=== PATIENT | female | born 1990 | race Caucasian/White ===

== ENCOUNTER 2016-11-21 18:15 | Emergency (ER) | payer MEDICAID ==
--- NOTE | 2016-11-21 18:44 | Emergency Department Record ---
History of Present Illness - General Chief Complaint: Neck Injury/Pain Stated Complaint: LT SIDE NECK PAIN Time Seen by Provider: 11/21/16 18:41 Source: Patient Mode of Arrival: Ambulatory Limitations: No limitations - History of Present Illness Initial Comments: 25 yo female presents to ED with a CC of left sided neck pain for the past several days. Patient reports falling asleep on a large couch cushion before waking up with her symptoms, denies trauma or injury, denies numbness, tingling , or weakness to the left upper extremity. Patient denies health problems at her baseline. MD Complaint: Neck pain Onset/Timin -: Days(s) Place: Home Severity: Mild Severity scale (1-10): 3 Consistency: Constant Improves With: Remaining still Worsens With: Movement of neck Context: Unknown Associated Symptoms: None Treatments Prior to Arrival: Ibuprofen - Related Data Previous Rx's Medication Instructions Recorded Diazepam [Valium] 5 mg PO Q8H PRN #10 tab 11/21/16 Naproxen [Naprosyn] 500 mg PO Q12H #30 tab 11/21/16 Allergies Allergy/AdvReac Type Severity Reaction Status Date / Time propranolol AdvReac Intermediate nausea Unverified 07/24/16 13:03 acetaminophen [From Vicodin] AdvReac NAUSEA Unverified 07/24/16 13:03 hydrocodone bitartrate AdvReac NAUSEA Unverified 07/24/16 13:03 [From Vicodin] Travel Screening - Travel/Exposure Within Last 30 Days Have you traveled within the last 30 days?: No Review of Systems Constitutional: Denies: Chills, Fever, Malaise, Night sweats Eyes: Denies: Eye discharge, Eye pain ENT: Denies: Congestion, Ear pain, Epistaxis Respiratory: Denies: Cough, Dyspnea Cardiovascular: Denies: Chest pain, Dyspnea on exertion Endocrine: Denies: Fatigue, Heat or cold intolerance Gastrointestinal: Denies: Abdominal pain, Nausea, Vomiting Genitourinary: Denies: Frequency, Hematuria, Incontinence, Retention Musculoskeletal: Reports: Myalgia, Neck pain. Denies: Arthralgia, Back pain, Gout, Joint swelling Skin: Denies: Bruising, Change in color Neurological: Denies: Abnormal gait, Confusion, Headache, Tingling Psychiatric: Denies: Anxiety Hematological/Lymphatic: Denies: Anemia, Blood Clots Past Medical History - SOCIAL HISTORY Smoking Status: Current every day smoker - RESPIRATORY Hx Respiratory Disorders: No - CARDIOVASCULAR Hx Cardio Disorders: No - NEURO Hx Neuro Disorders: No - GI Hx GI Disorders: Yes Comment:: gastritis currently - Hx Genitourinary Disorders: No - ENDOCRINE Hx Endocrine Disorders: No - MUSCULOSKELETAL Hx Musculoskeletal Disorders: No - PSYCH Hx Psych Problems: Yes Hx Anxiety: Yes Hx Depression: Yes - HEMATOLOGY/ONCOLOGY Hx Hematology/Oncology Disorders: No Family Medical History Any Significant Family History?: Yes Hx Dementia: Grandparents Hx Heart Disease: Grandparents Physical Exam - General General Appearance: Alert, Oriented x3, Cooperative, Mild distress Limitations: No limitations - Head Head exam: Atraumatic, Normocephalic, Normal inspection Head exam detail: negative: Abrasion, Contusion, Resendiz's sign, General tenderness, Hematoma, Laceration - Eye Eye exam: Normal appearance. negative: Conjunctival injection, Periorbital swelling, Periorbital tenderness, Scleral icterus - ENT Ear exam: negative: Auricular hematoma, Auricular trauma Nasal Exam: negative: Active bleeding, Discharge, Dried blood, Foreign body Mouth exam: negative: Drooling, Laceration, Muffled voice, Tongue elevation - Neck Neck exam: Tenderness, Other (TTP along the paravertebral muscles of the left cervical region, limited ROM to the left as well c/w spasm/strain). negative: Meningismus, Thyromegaly - Respiratory Respiratory exam: Normal lung sounds bilaterally. negative: Respiratory distress, Rhonchi, Stridor, Wheezes - Cardiovascular Cardiovascular Exam: Regular rate, Normal rhythm, Normal heart sounds - GI/Abdominal GI/Abdominal exam: Soft. negative: Rebound, Rigid, Tenderness - Rectal Rectal exam: Deferred - exam: Deferred - Extremities Extremities exam: Normal inspection. negative: Pedal edema, Tenderness - Back Back exam: Denies: CVA tenderness (R), CVA tenderness (L) - Neurological Neurological exam: Alert, Normal gait, Oriented X3 - Psychiatric Psychiatric exam: Normal affect, Normal mood - Skin Skin exam: Normal color. negative: Abrasion Type of lesion: negative: abrasion Course Vital Signs 11/21/16 18:23 Temperature 98.0 F Pulse Rate 97 H Respiratory 20 Rate Blood Pressure 144/80 Pulse Ox 98 - Reevaluation(s) Reevaluation #1: 11/21/16 18:48 Patient seen and examined, denies trauma or injury, radiographs are not felt to be of benefit. Patient denies any symptoms of numbness, tingling, or weakness to the upper extremity (no clinical signs for spinal compression syndrome). Patient appears stable for discharge at this time. Disposition Disposition: Discharge Clinical Impression: Cervical paraspinal muscle spasm Disposition: Home, Self-Care Condition: (2) Stable Instructions: Muscle Spasm (ED) Additional Instructions: Return to ED if your symptoms worsen or if you have any concerns. naprosyn and valium as directed. Follow-up with your family doctor in 3-5 days as directed. Prescriptions: Naproxen [Naprosyn] 500 mg PO Q12H #30 tab. Diazepam [Valium] 5 mg PO Q8H PRN #10 tab PRN Reason: Spasms Forms: Patient Portal Access Time of Disposition: 18:44
== END 2016-11-21 18:58 | disposition home or self-care (01) ==
LOC: ER 18:15
DX: M62.830 Muscle spasm of back (principal)
CPT/HCPCS: 99282

== ENCOUNTER 2017-06-13 06:02 | Emergency (ER) | payer MEDICAID ==
--- NOTE | 2017-06-13 06:29 | Emergency Department Record ---
History of Present Illness - General Chief complaint: Pain Stated complaint: CRAMPING Time Seen by Provider: 06/13/17 06:17 Source: Patient Mode of Arrival: Ambulatory Limitations: No limitations - History of Present Illness Initial comments: 26 yo female presents to ED for evaluation of increasing painful periods that began 3 months ago, reports that her symptoms have been irregular and worsened 5 days ago. Patient denies health problems at her baseline, reports that she has not been sexually active since December of this year. Patient denies nausea, vomiting, change in stools, urinary symptoms, or vaginal discharge. Patient previous abdominal surgery. MD Complaint: Abdominal Pain Onset/Timin -: Days(s) History of Same: Yes Severity scale (1-10): 8 Consistency: Constant, Getting worse Improves with: Nothing Worsens with: Nothing Associated Symptoms: Denies other symptoms - Related Data Allergies Allergy/AdvReac Type Severity Reaction Status Date / Time sulfamethoxazole Allergy Intermediate red itchy Unverified 06/12/17 07:49 [From Bactrim] rash trimethoprim [From Bactrim] Allergy Intermediate red itchy Unverified 06/12/17 07:49 rash propranolol AdvReac Intermediate nausea Unverified 06/12/17 07:49 hydrocodone bitartrate AdvReac NAUSEA Unverified 06/12/17 07:49 [From Vicodin] Travel Screening - Travel/Exposure Within Last 30 Days Have you traveled within the last 30 days?: No Review of Systems Constitutional: Denies: Chills, Fever, Malaise, Night sweats Eyes: Denies: Eye discharge, Eye pain ENT: Denies: Congestion, Ear pain, Epistaxis Respiratory: Denies: Cough, Dyspnea Cardiovascular: Denies: Chest pain, Dyspnea on exertion Endocrine: Denies: Fatigue, Heat or cold intolerance Gastrointestinal: Denies: Abdominal pain, Nausea, Vomiting Genitourinary: Denies: Incontinence, Retention Musculoskeletal: Denies: Arthralgia, Back pain, Gout, Joint swelling Skin: Denies: Bruising, Change in color Neurological: Denies: Abnormal gait, Confusion, Headache, Seizure Psychiatric: Denies: Anxiety Hematological/Lymphatic: Denies: Anemia, Blood Clots Past Medical History - SOCIAL HISTORY Smoking Status: Former smoker Alcohol Use: Rare Drug Use: Occasional Drug Use Detail:: Marijuana - RESPIRATORY Hx Respiratory Disorders: No - CARDIOVASCULAR Hx Cardio Disorders: No - NEURO Hx Neuro Disorders: No - GI Hx GI Disorders: Yes Comment:: gastritis currently - Hx Genitourinary Disorders: No - ENDOCRINE Hx Endocrine Disorders: No - MUSCULOSKELETAL Hx Musculoskeletal Disorders: No - PSYCH Hx Psych Problems: Yes Hx Anxiety: Yes Hx Depression: Yes - HEMATOLOGY/ONCOLOGY Hx Hematology/Oncology Disorders: No Family Medical History Any Significant Family History?: Yes Hx Dementia: Grandparents Hx Heart Disease: Grandparents Physical Exam - General General Appearance: Alert, Oriented x3, Cooperative, Mild distress Limitations: No limitations - Head Head exam: Atraumatic, Normocephalic, Normal inspection Head exam detail: negative: Abrasion, Contusion, Resendiz's sign, General tenderness, Hematoma, Laceration - Eye Eye exam: Normal appearance. negative: Conjunctival injection, Periorbital swelling, Periorbital tenderness, Scleral icterus - ENT Ear exam: negative: Auricular hematoma, Auricular trauma Nasal Exam: negative: Active bleeding, Discharge, Dried blood, Foreign body Mouth exam: negative: Drooling, Laceration, Muffled voice, Tongue elevation - Neck Neck exam: Normal inspection. negative: Meningismus - Respiratory Respiratory exam: Normal lung sounds bilaterally. negative: Rales, Respiratory distress, Rhonchi, Stridor - Cardiovascular Cardiovascular Exam: Regular rate, Normal rhythm, Normal heart sounds - GI/Abdominal GI/Abdominal exam: Soft, Tenderness (TTP to the suprapubic, LLQ, RLQ on examination (moderate), no rebound or peritoenal signs on examination.). negative: Rebound, Rigid - Rectal Rectal exam: Deferred - exam: Deferred - Extremities Extremities exam: Normal inspection. negative: Calf tenderness, Pedal edema, Tenderness - Back Back exam: Denies: CVA tenderness (R), CVA tenderness (L) - Neurological Neurological exam: Alert, Normal gait, Oriented X3 - Psychiatric Psychiatric exam: Normal affect, Normal mood - Skin Skin exam: Normal color. negative: Abrasion Type of lesion: negative: abrasion Course Vital Signs 06/13/17 06:08 Temperature 98.1 F Pulse Rate [ 117 H Pulse Ox Probe] Respiratory 16 Rate Blood Pressure 154/95 [Left Arm] Pulse Ox 96 - Reevaluation(s) Reevaluation #1: 06/13/17 06:28 Patient seen and examined, analgesia, laboratory studies, and US pelvis ordered for further evaluation. Reevaluation #2: 06/13/17 06:46 Case was discussed with oncoming provider, will assume care and disposition pending US results. Medical Decision Making - Lab Data Result diagrams: 06/13/17 06:37 06/13/17 06:30 Disposition Clinical Impression: Pelvic pain, DUB (dysfunctional uterine bleeding) Disposition: Home, Self-Care Instructions: Dysfunctional Uterine Bleeding (ED) Additional Instructions: Return to ED if your symptoms worsen or if you have any concerns. Follow-up with your family doctor in 3-5 days as directed. Forms: Patient Portal Access Time of Disposition: 06:30 Quality - Quality Measures Quality Measures: N/A - Blood Pressure Screening Does Patient Have Any of the Following: No Blood Pressure Classification: Hypertensive Reading Systolic Measurement: 154 Diastolic Measurement: 95 Screening for High Blood Pressure: < First Hypertensive BP, F/U Documented > [ G8950] First Hypertensive Follow-up Interventions: Referral to alternative/primary care provider.
[2017-06-13 06:36] LABS: URINE APPEARANCE CLEAR; URINE BILIRUBIN NEGATIVE (NEGATIVE); URINE BLOOD MODERATE (NEGATIVE); URINE COLOR YELLOW; URINE GLUCOSE (UA) NEGATIVE (NEGATIVE); URINE KETONE NEGATIVE (NEGATIVE); URINE LEUKOCYTE ESTERASE NEGATIVE (NEGATIVE); URINE NITRITE NEGATIVE (NEGATIVE); URINE PROTEIN NEGATIVE (NEGATIVE); URINE UROBILINOGEN 0.2 E.U./dL (0.20 - 1.00)
[2017-06-13 06:38] LABS: HCG,QUALITATIVE URINE NEGATIVE (NEGATIVE); URINE BACTERIA NONE SEEN; URINE EPITHELIAL CELLS 0 - 2 (FEW); URINE WBC 0 - 2 (0-2/hpf)
[2017-06-13 06:41] LABS: BASO % 0.5 % (0-6); EOS % 1.6 % (0-6); GRAN % 58.5 % (47-80); HEMATOCRIT 41.4 % (35.0-47.0); HEMOGLOBIN 14.1 gm/dl (11.6-16.0); LYMPH % 30.7 % (16-45); MEAN CORPUSCULAR HEMOGLOBIN 28.6 pg (27-33); MEAN CORPUSCULAR HGB CONC 34.1 g/dl (32-36); MEAN PLATELET VOLUME 11.7 fl (7.4-10.4); MONO % 8.7 % (0-9); PLATELET COUNT 273 K/uL (130-400); RED BLOOD COUNT 4.93 M/uL (3.80-5.40); RED CELL DISTRIBUTION WIDTH 12.9 % (11.5-14.5); WHITE BLOOD COUNT W/O DIFF 5.8 K/uL (4.2-12.2)
[2017-06-13] MEDS: 0.9 % SODIUM CHLORIDE 1000ML 1,000 ML IV SCH (06:42)
[2017-06-13] MEDS: KETOROLAC 30 MG/ML VIAL IVP ONE (06:42)
[2017-06-13 06:58] LABS: BLOOD UREA NITROGEN 5 mg/dL (6-20); CREATININE 0.8 mg/dL (0.5-0.9); EST GLOMERULAR FILTRATION RATE > 60 mL/min; GLUCOSE,RANDOM 89 mg/dL (74-109); TOTAL PROTEIN 7.6 g/dL (6.6-8.7)
[2017-06-13 07:00] LABS: ALB/GLOB RATIO 1.4 (1.1-1.8); ALBUMIN 4.4 g/dL (4.0-5.0); ALKALINE PHOSPHATASE 43 U/L (35-104); ALT/SGPT 35 U/L (<33); AST/SGOT 25 U/L (10.0-35.0); LIPASE 16 U/L (13-60)
--- NOTE | 2017-06-13 08:23 | Emergency Department Record ---
History of Present Illness - General Chief complaint: Pain Stated complaint: CRAMPING Time Seen by Provider: 06/13/17 06:17 Source: Patient Mode of Arrival: Ambulatory Limitations: No limitations - History of Present Illness Onset/Timin -: Days(s) History of Same: Yes Severity scale (1-10): 8 Consistency: Constant, Getting worse Improves with: Nothing Worsens with: Nothing Associated Symptoms: Denies other symptoms - Related Data Previous Rx's Medication Instructions Recorded Naproxen [Naprosyn] 250 mg PO BID #14 tablet 06/13/17 Allergies Allergy/AdvReac Type Severity Reaction Status Date / Time sulfamethoxazole Allergy Intermediate red itchy Unverified 06/12/17 07:49 [From Bactrim] rash trimethoprim [From Bactrim] Allergy Intermediate red itchy Unverified 06/12/17 07:49 rash propranolol AdvReac Intermediate nausea Unverified 06/12/17 07:49 hydrocodone bitartrate AdvReac NAUSEA Unverified 06/12/17 07:49 [From Vicodin] Travel Screening - Travel/Exposure Within Last 30 Days Have you traveled within the last 30 days?: No Review of Systems Constitutional: Denies: Chills, Fever, Malaise, Night sweats Eyes: Denies: Eye discharge, Eye pain ENT: Denies: Congestion, Ear pain, Epistaxis Respiratory: Denies: Cough, Dyspnea Cardiovascular: Denies: Chest pain, Dyspnea on exertion Endocrine: Denies: Fatigue, Heat or cold intolerance Gastrointestinal: Denies: Abdominal pain, Nausea, Vomiting Genitourinary: Denies: Incontinence, Retention Musculoskeletal: Denies: Arthralgia, Back pain, Gout, Joint swelling Skin: Denies: Bruising, Change in color Neurological: Denies: Abnormal gait, Confusion, Headache, Seizure Psychiatric: Denies: Anxiety Hematological/Lymphatic: Denies: Anemia, Blood Clots Past Medical History - SOCIAL HISTORY Smoking Status: Former smoker Alcohol Use: Rare Drug Use: Occasional Drug Use Detail:: Marijuana - RESPIRATORY Hx Respiratory Disorders: No - CARDIOVASCULAR Hx Cardio Disorders: No - NEURO Hx Neuro Disorders: No - GI Hx GI Disorders: Yes Comment:: gastritis currently - Hx Genitourinary Disorders: No - ENDOCRINE Hx Endocrine Disorders: No - MUSCULOSKELETAL Hx Musculoskeletal Disorders: No - PSYCH Hx Psych Problems: Yes Hx Anxiety: Yes Hx Depression: Yes - HEMATOLOGY/ONCOLOGY Hx Hematology/Oncology Disorders: No Family Medical History Any Significant Family History?: Yes Hx Dementia: Grandparents Hx Heart Disease: Grandparents Physical Exam - General Limitations: No limitations Course Vital Signs 06/13/17 06/13/17 06:08 07:01 Temperature 98.1 F Pulse Rate [ 117 H 74 Pulse Ox Probe] Respiratory 16 18 Rate Blood Pressure 154/95 109/58 [Left Arm] Pulse Ox 96 99 - Reevaluation(s) Reevaluation #1: The patient is doing very well at this time. Her pain has pretty much resolved and on exam her abdomen is very soft and nontender in all 4 quads. The patient feels much better and is ready for home. I did explain to her the need for F/U and did discuss the normal US. 06/13/17 08:20 Medical Decision Making - Data Complexity MDM Data: Labs Ordered and/or Reviewed, X-Ray Ordered and/or Reviewed - Lab Data Result diagrams: 06/13/17 06:37 06/13/17 06:30 Lab Results 06/13/17 06/13/17 06/13/17 Range/Units 06:30 06:37 06:37 WBC 5.8 (4.2-12.2) K/uL RBC 4.93 (3.80-5.40) M/uL Hgb 14.1 (11.6-16.0) gm/dl Hct 41.4 (35.0-47.0) % MCV 84.0 (81-97) fl MCH 28.6 (27-33) pg MCHC 34.1 (32-36) g/dl RDW 12.9 (11.5-14.5) % Plt Count 273 (130-400) K/uL MPV 11.7 H (7.4-10.4) fl Gran % 58.5 (47-80) % Lymphocytes % 30.7 (16-45) % Monocytes % 8.7 (0-9) % Eosinophils % 1.6 (0-6) % Basophils % 0.5 (0-6) % Sodium 144 (136-145) mmol/L Potassium 3.5 (3.4-4.5) mmol/L Chloride 105 (98-107) mmol/L Carbon Dioxide 26.0 (22-29) mmol/L Anion Gap 13.0 (7-16) BUN 5 L (6-20) mg/dL Creatinine 0.8 (0.5-0.9) mg/dL Estimated GFR > 60 mL/min Random Glucose 89 (74-109) mg/dL Calcium 9.2 (8.6-10.0) mg/dL Total Bilirubin 0.50 (0.2-1.0) mg/dL AST 25 (10.0-35.0) U/L ALT 35 H (<33) U/L Alkaline Phosphatase 43 (35-104) U/L Total Protein 7.6 (6.6-8.7) g/dL Albumin 4.4 (4.0-5.0) g/dL Globulin 3.2 (1.4-4.8) gm/dL Albumin/Globulin Ratio 1.4 (1.1-1.8) Lipase 16 (13-60) U/L Urine Color Yellow Urine Appearance Clear Urine pH 6.0 (5.0-8.0) Ur Specific [place] 1.010 (1.002-1.030) Urine Protein Negative (NEGATIVE) Urine Glucose (UA) Negative (NEGATIVE) Urine Ketones Negative (NEGATIVE) Urine Blood Moderate (NEGATIVE) Urine Nitrite Negative (NEGATIVE) Urine Bilirubin Negative (NEGATIVE) Urine Urobilinogen 0.2 (0.20 - 1.00) E.U./dL Ur Leukocyte Esterase Negative (NEGATIVE) Urine RBC 3 - 6 (NONE SEEN) Urine WBC 0 - 2 (0-2/hpf) Ur Epithelial Cells 0 - 2 (FEW) Urine Bacteria None seen Urine HCG, Qual Negative (NEGATIVE) - Radiology Data Radiology results: Report reviewed (Pelvic US: Normal) Disposition Disposition: Discharge Clinical Impression: Pelvic pain, DUB (dysfunctional uterine bleeding) Disposition: Home, Self-Care Instructions: Dysfunctional Uterine Bleeding (ED) Additional Instructions: Return to ED if your symptoms worsen or if you have any concerns. Follow-up with your family doctor in 3-5 days as directed. Please follow up in the [facility] as directed. Prescriptions: Naproxen [Naprosyn] 250 mg PO BID #14 tablet Referrals: [facility] [Provider Group] Forms: Patient Portal Access Time of Disposition: 08:22 Quality - Quality Measures Quality Measures: N/A - Blood Pressure Screening View Details: Yes Does Patient Have Any of the Following: No Blood Pressure Classification: Pre-Hypertensive BP Reading Systolic Measurement: 114 Diastolic Measurement: 81 Screening for High Blood Pressure: < Pre-Hypertensive BP, F/U Documented > [ G8950] Pre-Hypertensive Follow-up Interventions: Referral to alternative/primary care provider.
--- NOTE | 2017-06-13 15:02 | ULTRASOUND REPORT ---
EXAM: PELVIC ULTRASOUND HISTORY: ABNORMAL BLEEDING. TECHNIQUE: Transabdominal and transvaginal sonographic images of the pelvis were obtained. Comparison: None. FINDINGS: On transabdominal images, the uterus measures 6.9 x 2.3 x 4.2 cm. The myometrium is homogeneous. The endometrium measures 3 mm. The ovaries are not well seen transabdominally. On transvaginal imaging, the endometrium measures 2 mm in thickness. The myometrium is homogeneous. The right ovary measures 3.0 x 1.4 x 1.5 cm. The left ovary measures 1.4 x 2.5 x 1.5 cm. Bilateral ovarian follicles. Doppler and spectral analysis with color flow was utilized. Arterial and venous flow to both ovaries. No solid adnexal mass. No free fluid. IMPRESSION: UNREMARKABLE PELVIC ULTRASOUND. JOB NUMBER: [id number] MTDD
== END 2017-06-13 08:34 | disposition home or self-care (01) ==
LOC: ER 06:02
DX: N93.8 Other specified abnormal uterine and vaginal bleeding (principal); R10.2 Pelvic and perineal pain
CPT/HCPCS: 99284 ×2; 96374; 96361; 83690; 85025; 80053; 81001; 81025; 76856; 76830; J1885; J7030

== ENCOUNTER 2017-07-17 09:39 | Emergency (ER) | payer MEDICAID ==
[2017-07-17] MEDS ORDERED: 0.9 % SODIUM CHLORIDE 1,000 ML BAG IV ONE (10:49)
--- NOTE | 2017-07-17 11:08 | Emergency Department Record ---
History of Present Illness - General Chief Complaint: Abdominal Pain Stated Complaint: CONSTIPATION,VOMITING Time Seen by Provider: 07/17/17 10:45 Source: Patient Mode of Arrival: Ambulatory Limitations: No limitations - History of Present Illness Initial Comments: pt c/o constipation and abd pain for 2 wks. pt is tearful and concerned that something is wrong. she does not usually have a problem w constipation. she has tried laxatives without success and the pain is getting worse. MD Complaint: Abdominal pain Onset/Timin -: Week(s) Location: Epigastric, Suprapubic Radiation: None Severity: Severe Quality: Sharp Consistency: Constant Improves With: Nothing Worsens With: Nothing Associated Symptoms: Constipation - Related Data LMP Date: 07/03/17 Patient : No Previous Rx's Medication Instructions Recorded Magnesium Citrate [Citrate of 296 ml PO NOW #1 btl 07/17/17 Magnesia] Allergies Allergy/AdvReac Type Severity Reaction Status Date / Time sulfamethoxazole Allergy Intermediate red itchy Unverified 06/27/17 13:50 [From Bactrim] rash trimethoprim [From Bactrim] Allergy Intermediate red itchy Unverified 06/27/17 13:50 rash propranolol AdvReac Intermediate nausea Unverified 06/27/17 13:50 hydrocodone bitartrate AdvReac NAUSEA Unverified 06/27/17 13:50 [From Vicodin] Travel Screening - Travel/Exposure Within Last 30 Days Have you traveled within the last 30 days?: No Review of Systems Reviewed: No additional complaints except as noted below Constitutional: Reports: As per HPI. Denies: Chills, Fever, Malaise, Night sweats, Weakness, Weight change Eyes: Reports: As per HPI. Denies: Eye discharge, Eye pain, Photophobia, Vision change ENT: Reports: As per HPI. Denies: Congestion, Dental pain, Ear pain, Epistaxis , Hearing loss, Throat pain Respiratory: Reports: As per HPI. Denies: Cough, Dyspnea, Hemoptysis, Stridor, Wheezes Cardiovascular: Reports: As per HPI. Denies: Arrhythmia, Chest pain, Dyspnea on exertion, Edema, Murmurs, Orthopnea, Palpitations, Paroxysmal nocturnal dyspnea, Rheumatic Fever, Syncope Endocrine: Reports: As per HPI. Denies: Fatigue, Heat or cold intolerance, Polydipsia, Polyuria Gastrointestinal: Reports: As per HPI. Denies: Abdominal pain, Constipation, Diarrhea, Hematemesis, Hematochezia, Melena, Nausea, Vomiting Genitourinary: Reports: As per HPI. Denies: Abnormal menses, Discharge, Dyspareunia, Dysuria, Frequency, Hematuria, Incontinence, Retention, Urgency Musculoskeletal: Reports: As per HPI. Denies: Arthralgia, Back pain, Gout, Joint swelling, Myalgia, Neck pain Skin: Reports: As per HPI. Denies: Bruising, Change in color, Change in hair/ nails, Lesions, Pruritus, Rash Neurological: Reports: As per HPI. Denies: Abnormal gait, Confusion, Headache, Numbness, Paresthesias, Seizure, Tingling, Tremors, Vertigo, Weakness Psychiatric: Reports: As per HPI. Denies: Anxiety, Auditory hallucinations, Depression, Homicidal thoughts, Suicidal thoughts, Visual hallucinations Hematological/Lymphatic: Reports: As per HPI. Denies: Anemia, Blood Clots, Easy bleeding, Easy bruising, Swollen glands Past Medical History - SOCIAL HISTORY Smoking Status: Former smoker Alcohol Use: None Drug Use: None - RESPIRATORY Hx Respiratory Disorders: No - CARDIOVASCULAR Hx Cardio Disorders: No - NEURO Hx Neuro Disorders: No - GI Hx GI Disorders: Yes Comment:: gastritis currently - Hx Genitourinary Disorders: No - ENDOCRINE Hx Endocrine Disorders: No - MUSCULOSKELETAL Hx Musculoskeletal Disorders: No - PSYCH Hx Psych Problems: Yes Hx Anxiety: Yes Hx Depression: Yes - HEMATOLOGY/ONCOLOGY Hx Hematology/Oncology Disorders: No Family Medical History Any Significant Family History?: Yes Hx Dementia: Grandparents Hx Heart Disease: Grandparents Physical Exam - General General Appearance: Alert, Oriented x3, Cooperative, Mild distress - Head Head exam: Normal inspection - Eye Eye exam: Normal appearance, PERRL, EOMI Pupils: Normal accommodation - ENT ENT exam: Normal exam, Mucous membranes moist, Normal external ear exam, Normal orophraynx Ear exam: Normal external inspection. negative: External canal tenderness Nasal Exam: Normal inspection. negative: Discharge, Sinus tenderness Mouth exam: Normal external inspection, Tongue normal Teeth exam: Normal inspection. negative: Dental caries Throat exam: Normal inspection. negative: Tonsillar erythema, Tonsillar exudate - Neck Neck exam: Normal inspection, Full ROM. negative: Tenderness - Respiratory Respiratory exam: Normal lung sounds bilaterally. negative: Respiratory distress - Cardiovascular Cardiovascular Exam: Regular rate, Normal rhythm, Normal heart sounds - GI/Abdominal GI/Abdominal exam: Soft, Normal bowel sounds, Tenderness - Rectal Rectal exam: Deferred - exam: Deferred - Extremities Extremities exam: Normal inspection, Full ROM, Normal capillary refill. negative: Tenderness - Back Back exam: Reports: Normal inspection, Full ROM. Denies: Muscle spasm, Rash noted, Tenderness - Neurological Neurological exam: Alert, Normal gait, Oriented X3, Reflexes normal - Psychiatric Psychiatric exam: Normal affect, Normal mood - Skin Skin exam: Dry, Intact, Normal color, Warm Course Vital Signs 07/17/17 10:36 Temperature 99.0 F Pulse Rate [ 81 Pulse Ox Probe] Respiratory 18 Rate Blood Pressure 129/73 [Left Arm] Pulse Ox 97 Medical Decision Making - Lab Data Result diagrams: 07/17/17 11:00 07/17/17 11:00 Disposition Disposition: Discharge Clinical Impression: Constipation by delayed colonic transit Disposition: Home, Self-Care Condition: (1) Good Instructions: Constipation (ED) Additional Instructions: follow up with family doctor. return sooner if worse. push fluids Prescriptions: Magnesium Citrate [Citrate of Magnesia] 296 ml PO NOW #1 btl Forms: Patient Portal Access Quality - Quality Measures Quality Measures: N/A - Blood Pressure Screening Does Patient Have Any of the Following: No Blood Pressure Classification: Pre-Hypertensive BP Reading Systolic Measurement: 137 Diastolic Measurement: 72 Screening for High Blood Pressure: < Pre-Hypertensive BP, F/U Documented > [ G8950] Pre-Hypertensive Follow-up Interventions: Follow-up with rescreen every year.
[2017-07-17 11:16] LABS: BASO % 0.2 % (0-6); EOS % 1.4 % (0-6); GRAN % 70.6 % (47-80); HEMATOCRIT 40.4 % (35.0-47.0); HEMOGLOBIN 13.3 gm/dl (11.6-16.0); LYMPH % 20.8 % (16-45); MEAN CELL VOLUME 85.6 fl (81-97); MEAN CORPUSCULAR HEMOGLOBIN 28.2 pg (27-33); MEAN CORPUSCULAR HGB CONC 32.9 g/dl (32-36); MEAN PLATELET VOLUME 12.2 fl (7.4-10.4); PLATELET COUNT 229 K/uL (130-400); RED BLOOD COUNT 4.72 M/uL (3.80-5.40); RED CELL DISTRIBUTION WIDTH 12.5 % (11.5-14.5); WHITE BLOOD COUNT W/O DIFF 6.4 K/uL (4.2-12.2)
[2017-07-17 11:23] LABS: BLOOD UREA NITROGEN 6 mg/dL (6-20); CREATININE 0.7 mg/dL (0.5-0.9); EST GLOMERULAR FILTRATION RATE > 60 mL/min; TOTAL PROTEIN 6.9 g/dL (6.6-8.7)
[2017-07-17 11:25] LABS: GLUCOSE,RANDOM 94 mg/dL (74-109)
[2017-07-17 11:28] LABS: ALB/GLOB RATIO 1.4 (1.1-1.8); ALKALINE PHOSPHATASE 39 U/L (35-104); ALT/SGPT 20 U/L (<33); AST/SGOT 19 U/L (10.0-35.0); LIPASE 17 U/L (13-60)
[2017-07-17 12:22] LABS: URINE APPEARANCE CLEAR; URINE BILIRUBIN NEGATIVE (NEGATIVE); URINE BLOOD NEGATIVE (NEGATIVE); URINE COLOR YELLOW; URINE GLUCOSE (UA) NEGATIVE (NEGATIVE); URINE KETONE NEGATIVE (NEGATIVE); URINE LEUKOCYTE ESTERASE NEGATIVE (NEGATIVE); URINE NITRITE NEGATIVE (NEGATIVE); URINE PROTEIN NEGATIVE (NEGATIVE); URINE UROBILINOGEN 0.2 E.U./dL (0.20 - 1.00)
[2017-07-17] MEDS ORDERED: ONDANSETRON HCL IV 4 MG/2 ML VIAL IVP ONE (13:52)
--- NOTE | 2017-07-18 07:35 | CT SCAN REPORT ---
EXAM: CT OF THE ABDOMEN AND PELVIS WITHOUT CONTRAST HISTORY: MID ABDOMINAL PAIN. TECHNIQUE: Sequential axial images were obtained from the diaphragms through the ischiorectal fossa without intravenous contrast administration. Oral contrast was administered. FINDINGS: The visualized lung bases appear normal. The liver, gallbladder, pancreas and spleen appear normal. The adrenal glands and kidneys appear normal. No gross abnormalities within the stomach. The small bowel appears normal. The appendix is visualized and appears normal. The colon appears normal. The urinary bladder appears normal. The uterus and adnexal structures appear normal. The osseous structures are normal. IMPRESSION: NO ACUTE ABDOMINAL OR PELVIC DISEASE PROCESS IS APPRECIATED. JOB NUMBER: [id number] [facility]
== END 2017-07-17 14:59 | disposition home or self-care (01) ==
LOC: ER 09:39
DX: K59.01 Slow transit constipation (principal); R10.13 Epigastric pain
CPT/HCPCS: 99284 ×2; 96374; 83690; 85025; 80053; 81003; 74176; J2405; J7030

== ENCOUNTER 2018-08-20 11:57 | Emergency (ER) | payer MEDICAID ==
--- NOTE | 2018-08-20 13:21 | Emergency Department Record ---
History of Present Illness - General Chief Complaint: Abdominal Pain Stated Complaint: CONSTIPATION Time Seen by Provider: 08/20/18 13:13 Source: Patient Mode of Arrival: Ambulatory - History of Present Illness Initial Comments: constipation and lat BM 4 mdays ago and she said she was having rectal bleeding with hard pushing.. Onset/Timin -: Days(s) Location: Other Severity scale (1-10): 8 Quality: Other Consistency: Constant Improves With: Nothing Worsens With: Nothing Associated Symptoms: Constipation - Related Data LMP (females 10-50): Current Home Medications Medication Instructions Recorded Confirmed Last Taken Norethindrone [Sharobel] 0.35 mg PO DAILY 08/20/18 08/20/18 Unknown Omeprazole 40 mg PO DAILY 08/20/18 08/20/18 Unknown Previous Rx's Medication Instructions Recorded Polyethylene Glycol 3350 [Miralax] 17 gm PO BID #1 bottle 08/20/18 Allergies Allergy/AdvReac Type Severity Reaction Status Date / Time sulfamethoxazole Allergy Intermediate red itchy Unverified 08/01/18 11:09 [From Bactrim] rash trimethoprim [From Bactrim] Allergy Intermediate red itchy Unverified 08/01/18 11:09 rash propranolol AdvReac Intermediate nausea Unverified 08/01/18 11:09 hydrocodone bitartrate AdvReac NAUSEA Unverified 08/01/18 11:09 [From Vicodin] Travel Screening - Travel/Exposure Within Last 30 Days Have you traveled within the last 30 days?: No Review of Systems Reviewed: No additional complaints except as noted below Constitutional: Reports: As per HPI. Denies: Chills, Fever, Malaise, Night sweats, Weakness, Weight change Eyes: Reports: As per HPI. Denies: Eye discharge, Eye pain, Photophobia, Vision change ENT: Reports: As per HPI. Denies: Congestion, Dental pain, Ear pain, Epistaxis , Hearing loss, Throat pain Respiratory: Reports: As per HPI. Denies: Cough, Dyspnea, Hemoptysis, Stridor, Wheezes Cardiovascular: Reports: As per HPI. Denies: Arrhythmia, Chest pain, Dyspnea on exertion, Edema, Murmurs, Orthopnea, Palpitations, Paroxysmal nocturnal dyspnea, Rheumatic Fever, Syncope Endocrine: Reports: As per HPI. Denies: Fatigue, Heat or cold intolerance, Polydipsia, Polyuria Gastrointestinal: Reports: As per HPI, Constipation, Vomiting (some vomiting 5 days ago and prilosec stopped that.). Denies: Abdominal pain, Diarrhea, Hematemesis, Hematochezia, Melena, Nausea Genitourinary: Reports: As per HPI. Denies: Abnormal menses, Discharge, Dyspareunia, Dysuria, Frequency, Hematuria, Incontinence, Retention, Urgency Musculoskeletal: Reports: As per HPI. Denies: Arthralgia, Back pain, Gout, Joint swelling, Myalgia, Neck pain Skin: Reports: As per HPI. Denies: Bruising, Change in color, Change in hair/ nails, Lesions, Pruritus, Rash Neurological: Reports: As per HPI. Denies: Abnormal gait, Confusion, Headache, Numbness, Paresthesias, Seizure, Tingling, Tremors, Vertigo, Weakness Psychiatric: Reports: As per HPI. Denies: Anxiety, Auditory hallucinations, Depression, Homicidal thoughts, Suicidal thoughts, Visual hallucinations Hematological/Lymphatic: Reports: As per HPI. Denies: Anemia, Blood Clots, Easy bleeding, Easy bruising, Swollen glands Past Medical History - SOCIAL HISTORY Smoking Status: Former smoker Alcohol Use: Rare Drug Use Detail:: Marijuana - RESPIRATORY Hx Respiratory Disorders: No - CARDIOVASCULAR Hx Cardio Disorders: No - NEURO Hx Neuro Disorders: No - GI Hx GI Disorders: Yes Comment:: gastritis currently - Hx Genitourinary Disorders: No - ENDOCRINE Hx Endocrine Disorders: No - MUSCULOSKELETAL Hx Musculoskeletal Disorders: No - PSYCH Hx Psych Problems: Yes Hx Anxiety: Yes Hx Depression: Yes - HEMATOLOGY/ONCOLOGY Hx Hematology/Oncology Disorders: No Family Medical History Any Significant Family History?: Yes Hx Dementia: Grandparents Hx Heart Disease: Grandparents Physical Exam - General General Appearance: Alert, Oriented x3, Cooperative, No acute distress - Head Head exam: Normal inspection - Eye Eye exam: Normal appearance, PERRL Pupils: Normal accommodation - ENT ENT exam: Normal exam, Mucous membranes moist, Normal external ear exam, Normal orophraynx, TM's normal bilaterally Ear exam: Normal external inspection. negative: External canal tenderness Nasal Exam: Normal inspection. negative: Discharge, Sinus tenderness Mouth exam: Normal external inspection, Tongue normal Teeth exam: Normal inspection. negative: Dental caries Throat exam: Normal inspection. negative: Tonsillar erythema, Tonsillar exudate - Neck Neck exam: Normal inspection, Full ROM. negative: Tenderness - Respiratory Respiratory exam: Normal lung sounds bilaterally. negative: Respiratory distress - Cardiovascular Cardiovascular Exam: Regular rate, Normal rhythm, Normal heart sounds - GI/Abdominal GI/Abdominal exam: Soft, Normal bowel sounds. negative: Tenderness - Rectal Rectal exam: Fecal impaction, Heme (+) stool (stool brown but hemoccult positive ), Normal rectal tone - exam: Deferred - Extremities Extremities exam: Normal inspection, Full ROM, Normal capillary refill. negative: Tenderness - Back Back exam: Reports: Normal inspection, Full ROM. Denies: Muscle spasm, Rash noted, Tenderness - Neurological Neurological exam: Alert, Normal gait, Oriented X3, Reflexes normal - Psychiatric Psychiatric exam: Normal affect, Normal mood - Skin Skin exam: Dry, Intact, Normal color, Warm Course Vital Signs 08/20/18 12:57 Temperature 99.0 F Pulse Rate [ 88 Pulse Ox Probe] Respiratory 18 Rate Blood Pressure 142/85 [Left Arm] Pulse Ox 98 - Reevaluation(s) Reevaluation #1: patient had some relief from the enema and will use one bottle of citrate of mag today 08/20/18 14:40 Disposition Clinical Impression: Constipation Qualifiers: Constipation type: unspecified constipation type Qualified Code(s): K59.00 - Constipation, unspecified Disposition: Home, Self-Care Condition: (1) Good Instructions: Constipation (ED) Additional Instructions: use one bottle of citrate of magnesium drink lots of water miralax 17 gms twice a day Prescriptions: Polyethylene Glycol 3350 [Miralax] 17 gm PO BID #1 bottle Forms: Patient Portal Access Time of Disposition: 14:41 Quality - Quality Measures Quality Measures: N/A - Blood Pressure Screening Does Patient Have Any of the Following: No Blood Pressure Classification: Pre-Hypertensive BP Reading Systolic Measurement: 142 Diastolic Measurement: 85 Screening for High Blood Pressure: < Pre-Hypertensive BP, F/U Documented > [ [id number]] Pre-Hypertensive Follow-up Interventions: Referral to alternative/primary care provider.
== END 2018-08-20 14:58 | disposition home or self-care (01) ==
LOC: ER 11:57
DX: K59.00 Constipation, unspecified (principal); R11.0 Nausea; K92.1 Melena; Z87.891 Personal history of nicotine dependence
CPT/HCPCS: 82272; 99282; 99283